=== PATIENT | female | born 1995 | race Caucasian/White ===

== ENCOUNTER → 2017-01-22 | Outpatient (CLI) | payer OTHER ==
[~2017-01-22] MED LIST: BCPILLS PO; COEN75CA PO; MAGN1TAB41 PO; NORE1TAB3 PO; [UNRECOGNIZED DRUG - OTHER] PO
--- NOTE | 2017-01-22 14:21 | DIAGNOSTIC IMAGING REPORT ---
RIGHT HAND MIN 3 VIEWS CLINICAL HISTORY: Right hand pain. Palpable lump of the third metacarpal head. COMPARISON: None. DISCUSSION: The bony mineralization appears normal. No fractures or dislocations are visualized. There are no erosive or destructive changes. No soft tissue masses are evident IMPRESSION: Unremarkable conventional radiographic evaluation of the right hand. Electronically signed by: Anirudh Wilkerson M.D. 01/22/2017 2:20 PM Dictated Date/Time: 01/22/2017 1:17 PM
== END | disposition home or self-care (01) ==
LOC: C.RDSM 12:48
PROVIDERS: ATTEND Family Medicine
DX: M79.641 Pain in right hand (principal); R22.31 Localized swelling, mass and lump, right upper limb

== ENCOUNTER 2017-02-21 00:21 | Emergency (ER) | payer OTHER ==
[~2017-02-21] VITALS: Ht 167.6 cm; Wt 49.2 kg
[2017-02-21 00:33] VITALS: TEMP 36.6; Ht 167.6 cm; Wt 49.2 kg
[2017-02-21] MEDS ORDERED: SODIUM CHLORIDE 0.9% 1000ML 1,000 ML IV ONE (00:45)
[2017-02-21] MEDS ORDERED: NORE1TAB3 PO (01:03)
[2017-02-21 01:06] VITALS: O2SAT 98
[2017-02-21 01:14] LABS: BASO % 0.2 %; BASO ABS # 0.02 K/uL (0-0.2); COMPLETE YES; EOS % 2.1 %; HEMATOCRIT 42.1 % (37-47); IG% 0.4 %; LYMPH % 36.2 %; LYMPH ABS # 2.92 K/uL (1.2-3.4); MEAN CELL VOLUME 86.6 fL (80-100); MEAN CORPUSCULAR HEMOGLOBIN 28.8 pg (25-34); MEAN CORPUSCULAR HGB CONC 33.3 g/dl (32-36); MONO % 9.4 %; NEUT % 51.7 %; PLATELET COUNT 167 K/uL (130-400); RED BLOOD COUNT 4.86 M/uL (4.2-5.4); WHITE BLOOD COUNT 8.07 K/uL (4.8-10.8)
--- NOTE | 2017-02-21 01:18 | DIAGNOSTIC IMAGING REPORT ---
SINGLE VIEW CHEST CLINICAL HISTORY: Left-sided chest pain. FINDINGS: An AP, portable, upright chest radiograph is obtained. No prior studies are available for comparison at the time of dictation. The cardiomediastinal silhouette is unremarkable. The lungs and pleural spaces are clear. No pneumothorax is seen. The bony thorax is grossly intact. IMPRESSION: No active disease in the chest. Electronically signed by: Gian Perez M.D. 02/21/2017 1:17 AM Dictated Date/Time: 02/21/2017 1:16 AM
[2017-02-21 01:30] LABS: ALT/SGPT 23 U/L (12-78); AST/SGOT 23 U/L (15-37); BLOOD UREA NITROGEN 14 mg/dl (7-18); CALCIUM 9.2 mg/dl (8.5-10.1); CARBON DIOXIDE 26 mmol/L (21-32); CHLORIDE 109 mmol/L (98-107); CREATININE 0.61 mg/dl (0.60-1.20); GLUCOSE 74 mg/dl (70-99); POTASSIUM 3.3 mmol/L (3.5-5.1); SODIUM 141 mmol/L (136-145)
[2017-02-21 01:31] LABS: POINT OF CARE TROPONIN I < 0.030 ng/ml (0-0.045)
[2017-02-21 01:41] LABS: ALB/GLOB RATIO 1.2 (0.9-2); ALKALINE PHOSPHATASE 91 U/L (45-117)
[2017-02-21 02:12] VITALS: BP 118/81; PULSE 68; O2SAT 98
--- NOTE | 2017-02-22 00:40 | EMERGENCY ROOM VISIT NOTE ---
History First contact with patient: 00:38 Chief Complaint: CARDIAC ASSESSMENT Stated Complaint: PAIN AROUND COLLAR BONE,NECK,LFT JAW,CHEST, Nursing Triage Summary: c/o collar bone pain for 1 hr History of Present Illness The patient is a 22 year old female who presents to the Emergency Room with complaints of an episode of chest pain into her left side chest wall that began about one hour prior to arrival. The patient states that she had symptoms for less than 2 or 3 minutes before they completely resolved. She was not diaphoretic or with lightheadedness or dizziness during this episode. She is not expressing palpitations. The patient became worried and now presents to the ER for evaluation. She is on control but denies other chronic medications. She does not have chronic medical disease. She rates her current discomfort a 2/10 and has not taken anything [id number] for her symptoms. She does not report aggravating or alleviating factors. Review of Systems More than 10 systems were reviewed and otherwise negative with the exception of history of present illness. Past Medical/Surgical History No chronic medical disease Family History No pertinent family history Social History Smoking Status: Never Smoker Housing Status: lives with family Current/Historical Medications Scheduled Norethin Acet & Estrad-Fe (09/11), 1 TAB PO DAILY Allergies Coded Allergies: Sulfa Antibiotics (Verified Allergy, Intermediate, RASH, 02/21/17) Physical Exam Vital Signs Date Time Temp Pulse Resp B/P (MAP) Pulse Ox O2 Delivery O2 Flow Rate FiO2 02/21/17 02:12 68 16 118/81 98 Room Air 02/21/17 01:09 73 18 116/85 97 Room Air 02/21/17 01:06 98 Room Air 02/21/17 01:06 98 Room Air 02/21/17 00:59 79 02/21/17 00:33 36.6 77 19 128/81 100 Room Air Pain Rating (0-10): 0 Physical Exam VITALS: Vitals are noted on the nurse's note and reviewed by myself. Vital signs stable. GENERAL: Well-developed, well-nourished, white female, who is in no acute distress and resting comfortably. Patient is cooperative with the examination. HEAD: Normocephalic atraumatic. EARS: External ear normal. External auditory canals clear, tympanic membranes pearly negro without erythema or effusion bilaterally. EYES: Pupils equal round and reactive to light and accommodation. Conjunctivae without injection, sclerae without icterus. Extraocular movements intact. NOSE: Patent, turbinates without inflammation or discharge. MOUTH: Mucous membranes moist. Tonsils are not enlarged. Pharynx without erythema, blood, or exudate. Uvula midline. Airway patent. NECK: Supple without nuchal rigidity. No lymphadenopathy. No thyromegaly. Cervical spine is nontender. HEART: Regular rate and rhythm without murmurs gallops or rubs. LUNGS: Clear to auscultation bilaterally without wheezes, rales or rhonchi. No retractions or accessory muscle use. ABDOMEN: Positive normal bowel sounds x 4. Soft, nontender, without masses or organomegaly. No guarding or rebound tenderness. MUSCULOSKELETAL: No muscle atrophy, erythema, or edema noted. Full range of motion without joint tenderness in all extremities. No tenderness to palpation. Normal gait. Strength 5/5 throughout. NEURO: Patient was alert and oriented to person place and time. CN II through XII grossly intact. Deep tendon reflexes 2+ throughout. No focal neurological deficits SKIN: The skin was without rashes, erythema, edema, or bruising. Capillary reflex less than 2 seconds. Medical Decision & Procedures ER Provider Diagnostic Interpretation: SINGLE VIEW CHEST CLINICAL HISTORY: Left-sided chest pain. FINDINGS: An AP, portable, upright chest radiograph is obtained. No prior studies are available for comparison at the time of dictation. The cardiomediastinal silhouette is unremarkable. The lungs and pleural spaces are clear. No pneumothorax is seen. The bony thorax is grossly intact. IMPRESSION: No active disease in the chest. Laboratory Results 02/21/17 01:00 Red Blood Count 4.86, Mean Corpuscular Volume 86.6, Mean Corpuscular Hemoglobin 28.8, Mean Corpuscular Hemoglobin Concent 33.3, Mean Platelet Volume 10.0, Neutrophils (%) (Auto) 51.7, Lymphocytes (%) (Auto) 36.2, Monocytes (%) (Auto) 9.4, Eosinophils (%) (Auto) 2.1, Basophils (%) (Auto) 0.2, Neutrophils # (Auto) 4.17, Lymphocytes # (Auto) 2.92, Monocytes # (Auto) 0.76, Eosinophils # (Auto) 0.17, Basophils # (Auto) 0.02 02/21/17 01:00 Test 02/21/17 01:00 02/21/17 01:12 White Blood Count 8.07 K/uL (4.8-10.8) Red Blood Count 4.86 M/uL (4.2-5.4) Hemoglobin 14.0 g/dL (12.0-16.0) Hematocrit 42.1 % (37-47) Mean Corpuscular Volume 86.6 fL (80-100) Mean Corpuscular Hemoglobin 28.8 pg (25-34) Mean Corpuscular Hemoglobin Concent 33.3 g/dl (32-36) Platelet Count 167 K/uL (130-400) Mean Platelet Volume 10.0 fL (7.4-10.4) Neutrophils (%) (Auto) 51.7 % Lymphocytes (%) (Auto) 36.2 % Monocytes (%) (Auto) 9.4 % Eosinophils (%) (Auto) 2.1 % Basophils (%) (Auto) 0.2 % Neutrophils # (Auto) 4.17 K/uL (1.4-6.5) Lymphocytes # (Auto) 2.92 K/uL (1.2-3.4) Monocytes # (Auto) 0.76 K/uL (0.11-0.59) Eosinophils # (Auto) 0.17 K/uL (0-0.5) Basophils # (Auto) 0.02 K/uL (0-0.2) RDW Standard Deviation 41.0 fL (36.4-46.3) RDW Coefficient of Variation 12.9 % (11.5-14.5) Immature Granulocyte % (Auto) 0.4 % Immature Granulocyte # (Auto) 0.03 K/uL (0.00-0.02) Anion Gap 6.0 mmol/L (3-11) Est Creatinine Clear Calc Drug Dose 113.3 ml/min Estimated GFR () > 150.0 Estimated GFR (Non- 129.6 BUN/Creatinine Ratio 23.0 (10-20) Calcium Level 9.2 mg/dl (8.5-10.1) Magnesium Level 2.0 mg/dl (1.8-2.4) Total Bilirubin 0.4 mg/dl (0.2-1) Aspartate Amino Transf (AST/SGOT) 23 U/L (15-37) Alanine Aminotransferase (ALT/SGPT) 23 U/L (12-78) Alkaline Phosphatase 91 U/L (45-117) Total Protein 7.7 gm/dl (6.4-8.2) Albumin 4.2 gm/dl (3.4-5.0) Globulin 3.5 gm/dl (2.5-4.0) Albumin/Globulin Ratio 1.2 (0.9-2) Lipase 224 U/L (73-393) Thyroid Stimulating Hormone (TSH) 3.380 uIu/ml (0.300-4.500) Bedside D-Dimer 253 ng/mlFEU (0-450) Bedside Troponin I < 0.030 ng/ml (0-0.045) Medications Administered Medications (Trade) Dose Ordered Sig/Hayder Route Start Time Stop Time Status Last Admin Dose Admin Sodium Chloride 1,000 ml @ 999 mls/hr Q1H1M ONCE IV 02/21/17 00:45 02/21/17 01:45 DC 02/21/17 01:18 999 MLS/HR ECG Change: Poor data quality, interpretation may be adversely affected Normal sinus rhythm with sinus arrhythmia @80bpm Normal ECG No previous ECGs available Confirmed by MARIA R KANG ([id number]) on 02/21/2017 10:32:55 AM ED Course Physical exam and history were performed. Nursing notes and EMR were reviewed. Patient appears to have an episode of left-sided chest pain that appears to have resolved prior to arrival. IV access was established and labs were obtained. EKG was performed and is as above. Chest x-ray was without acute findings. The patient's blood work is without a significant elevated white blood cell count, and others anemia, bandemia, or significant electrolyte imbalance. Lipase and transaminases are nondiagnostic. Troponin and d-dimer 1 are both negative. Overall the patient remained in stable and comfortable condition throughout her emergency department stay. I do not suspect a cardiopulmonary event as the cause of her symptoms. Her symptoms certainly could represent anxiety, or possibly a gastric etiology. The symptoms may also be musculoskeletal. Regardless ago the patient should follow with her primary care physician in the next few days for recheck. She was certainly invited back to the emergency department with any new, worsening, or concerning symptoms. She voiced understanding of this and was discharged home under the care of a male machine cleaner. The chart was completed utilizing Dragon Speech Voice Recognition Software. Grammatical errors, random word insertions, pronoun errors, and incomplete sentences are an occasional consequence of this system due to software limitations, ambient noise, and hardware issues. Any formal questions or concerns about the content, text, or information contained within the body of this dictation should be directly addressed to the provider for clarification. . Medical Decision Differential diagnosis includes, but is not limited to: Myocardial infarction, dysrhythmia, pericarditis, pneumothorax, aortic aneurysm/dissection, DVT/PE, anxiety, GERD, PUD, electrolyte imbalance, thyroid disorder, pneumonia, bronchitis, pancreatitis, and others Impression Primary Impression: Chest wall pain Departure Information Dispostion Home / Self-Care Condition GOOD Forms IMPORTANT VISIT INFORMATION Patient Instructions My [facility] Additional Instructions You were seen and evaluated today on an emergency basis only. This is not a substitute for, or an effort to provide, complete comprehensive medical care. It is not possible to recognize and treat all injuries or illnesses in a single emergency department visit. For this reason it is recommended that you followup with your primary care physician this week for ongoing care and evaluation. You are welcome to return to the emergency department anytime with new, worsening, or concerning symptoms.
== END 2017-02-21 02:14 | disposition home or self-care (01) ==
LOC: C.EDB 00:23
DX: R07.89 Other chest pain (principal); Z79.3 Long term (current) use of hormonal contraceptives

== ENCOUNTER 2017-03-18 23:35 | Emergency (ER) | payer OTHER ==
[~2017-03-18] VITALS: Ht 167.6 cm; Wt 48.9 kg
[~2017-03-18 23:35] MED LIST changes: -BCPILLS PO; -COEN75CA PO; -MAGN1TAB41 PO; -[UNRECOGNIZED DRUG - OTHER] PO
[2017-03-18 23:38] VITALS: TEMP 36.4
[2017-03-18] MEDS ORDERED: SODIUM CHLORIDE 0.9% 1000ML 1,000 ML IV STA ×2 (23:53)
[2017-03-18] MEDS ORDERED: ONDANSETRON INJ 2 MG/ML 2 ML VIAL IV STA (23:53)
[2017-03-18] MEDS ORDERED: KETOROLAC TROMETHAMINE 30 MG/ML VIAL IV STA (23:53)
[2017-03-19 00:30] VITALS: O2SAT 96; Ht 167.6 cm; Wt 48.9 kg
[2017-03-19 00:36] LABS: BASO % 0.4 %; BASO ABS # 0.03 K/uL (0-0.2); COMPLETE YES; HEMATOCRIT 39.9 % (37-47); IG% 0.3 %; LYMPH % 39.9 %; MEAN CELL VOLUME 87.5 fL (80-100); MEAN CORPUSCULAR HGB CONC 34.3 g/dl (32-36); MONO % 8.1 %; NEUT % 48.3 %; PLATELET COUNT 154 K/uL (130-400); RED BLOOD COUNT 4.56 M/uL (4.2-5.4); WHITE BLOOD COUNT 7.26 K/uL (4.8-10.8)
[2017-03-19 00:54] LABS: ALT/SGPT 20 U/L (12-78); AST/SGOT 15 U/L (15-37); BLOOD UREA NITROGEN 13 mg/dl (7-18); CALCIUM 9.4 mg/dl (8.5-10.1); CARBON DIOXIDE 26 mmol/L (21-32); CHLORIDE 112 mmol/L (98-107); CREATININE 0.68 mg/dl (0.60-1.20); GLUCOSE 93 mg/dl (70-99); POTASSIUM 3.7 mmol/L (3.5-5.1); SODIUM 142 mmol/L (136-145)
[2017-03-19 01:05] LABS: ALKALINE PHOSPHATASE 88 U/L (45-117)
[2017-03-19] MEDS ORDERED: LORAZEPAM 2 MG/ML 1 ML VIAL IV STA (01:20)
[2017-03-19] MEDS ORDERED: LORAZEPAM 2 MG/ML 1 ML VIAL ONE (01:22)
[2017-03-19 01:32] LABS: PREG INTERNAL NEGATIVE QC NEG CLEAR BACKGROUND; PREG INTERNAL POSITIVE QC POS CONTROL LINE
[2017-03-19 02:01] VITALS: BP 109/52; PULSE 71; O2SAT 95
--- NOTE | 2017-03-19 04:31 | EMERGENCY ROOM VISIT NOTE ---
History First contact with patient: 23:49 Chief Complaint: PAIN (GENERALIZED) Stated Complaint: LYMES DISEASE ATTACKS,EXTREME PAIN EVERYWHERE History of Present Illness The patient is a 22 year old female who presents to the Emergency Room with complaints of myalgias and arthralgias with fatigue and vaginal bleeding. Patient states she has Lyme's disease that is chronic per patient. She states she's never seen infectious disease for this. Patient states she actually missed on her control pills and then does not take them at the same time each day. Patient called her OB doctor as she is having her menstrual cycle for the past 10 days. They advised her to wait so next week for follow-up. They're advised her to take her control pills daily at the same time. Patient states she's taken 3 test and were negative. Patient denies chest pain, dyspnea, fever, chills, vomiting, diarrhea, neck stiffness, localized weakness. She is tolerating by mouth fluids and food. Review of Systems See HPI for pertinent positives & negatives. A total of 10 systems reviewed and were otherwise negative. Past Medical/Surgical History Lymes Social History Smoking Status: Never Smoker Marital Status: in relationship Housing Status: lives with family Current/Historical Medications Scheduled Norethin Acet & Estrad-Fe (09/11), 1 TAB PO DAILY Physical Exam Vital Signs Date Time Temp Pulse Resp B/P (MAP) Pulse Ox O2 Delivery O2 Flow Rate FiO2 03/19/17 02:01 71 17 109/52 95 Room Air 03/19/17 00:30 96 Room Air 03/19/17 00:24 67 03/18/17 23:38 36.4 67 18 145/85 96 Room Air Pain Rating (0-10): 3.0 Physical Exam VITALS: Vitals are noted on the nurse's note and reviewed by myself. Vital signs stable. GENERAL: White female, in no acute distress, nondiaphoretic, well-developed well -nourished. SKIN: The skin was without rashes, erythema, edema, or bruising. There is no tenting of the skin. Capillary reflex less than 2 seconds. HEAD: Normocephalic atraumatic. EARS: External auditory canals clear, tympanic membranes pearly negro without erythema or effusion bilaterally. EYES: Pupils equal round and reactive to light and accommodation. Conjunctivae without injection, sclerae without icterus. Extraocular movements intact. NOSE: Patent, turbinates without inflammation or discharge. MOUTH: Mucous membranes moist. Pharynx without erythema or exudate. Uvula midline. Airway patent. Tongue does not deviate. NECK: Supple without nuchal rigidity. No lymphadenopathy. No thyromegaly. Cervical spine is nontender. No JVD. HEART: Regular rate and rhythm without murmurs gallops or rubs. LUNGS: Clear to auscultation bilaterally without wheezes, rales or rhonchi. No dullness to percussion. No retractions or accessory muscle use. ABDOMEN: Positive bowel sounds x 4. Normal tympanic percussion. Soft, nontender, without masses or organomegaly. Clark sign negative. No guarding or rebound tenderness. MUSCULOSKELETAL: No muscle atrophy, erythema, or edema noted. NEURO: Patient was alert and oriented to person place and time. Normal sensation to light and sharp touch. No focal neurological deficits. Medical Decision & Procedures Laboratory Results 03/19/17 00:26 Red Blood Count 4.56, Mean Corpuscular Volume 87.5, Mean Corpuscular Hemoglobin 30.0, Mean Corpuscular Hemoglobin Concent 34.3, Mean Platelet Volume 10.0, Neutrophils (%) (Auto) 48.3, Lymphocytes (%) (Auto) 39.9, Monocytes (%) (Auto) 8.1, Eosinophils (%) (Auto) 3.0, Basophils (%) (Auto) 0.4, Neutrophils # (Auto) 3.50, Lymphocytes # (Auto) 2.90, Monocytes # (Auto) 0.59, Eosinophils # (Auto) 0.22, Basophils # (Auto) 0.03 03/19/17 00:26 Test 03/19/17 00:26 White Blood Count 7.26 K/uL (4.8-10.8) Red Blood Count 4.56 M/uL (4.2-5.4) Hemoglobin 13.7 g/dL (12.0-16.0) Hematocrit 39.9 % (37-47) Mean Corpuscular Volume 87.5 fL (80-100) Mean Corpuscular Hemoglobin 30.0 pg (25-34) Mean Corpuscular Hemoglobin Concent 34.3 g/dl (32-36) Platelet Count 154 K/uL (130-400) Mean Platelet Volume 10.0 fL (7.4-10.4) Neutrophils (%) (Auto) 48.3 % Lymphocytes (%) (Auto) 39.9 % Monocytes (%) (Auto) 8.1 % Eosinophils (%) (Auto) 3.0 % Basophils (%) (Auto) 0.4 % Neutrophils # (Auto) 3.50 K/uL (1.4-6.5) Lymphocytes # (Auto) 2.90 K/uL (1.2-3.4) Monocytes # (Auto) 0.59 K/uL (0.11-0.59) Eosinophils # (Auto) 0.22 K/uL (0-0.5) Basophils # (Auto) 0.03 K/uL (0-0.2) RDW Standard Deviation 40.4 fL (36.4-46.3) RDW Coefficient of Variation 12.6 % (11.5-14.5) Immature Granulocyte % (Auto) 0.3 % Immature Granulocyte # (Auto) 0.02 K/uL (0.00-0.02) Anion Gap 4.0 mmol/L (3-11) Est Creatinine Clear Calc Drug Dose 101.0 ml/min Estimated GFR () 144.9 Estimated GFR (Non- 125.0 BUN/Creatinine Ratio 19.0 (10-20) Calcium Level 9.4 mg/dl (8.5-10.1) Magnesium Level 2.0 mg/dl (1.8-2.4) Total Bilirubin 0.3 mg/dl (0.2-1) Direct Bilirubin < 0.1 mg/dl (0-0.2) Aspartate Amino Transf (AST/SGOT) 15 U/L (15-37) Alanine Aminotransferase (ALT/SGPT) 20 U/L (12-78) Alkaline Phosphatase 88 U/L (45-117) Total Creatine Kinase 92 U/L (26-192) Total Protein 7.5 gm/dl (6.4-8.2) Albumin 4.0 gm/dl (3.4-5.0) Thyroid Stimulating Hormone (TSH) 2.940 uIu/ml (0.300-4.500) Human Chorionic Gonadotropin, Qual NEG (NEG) Medications Administered Medications (Trade) Dose Ordered Sig/Hayder Route Start Time Stop Time Status Last Admin Dose Admin Sodium Chloride 1,000 ml @ 999 mls/hr Q1H1M STAT IV 03/18/17 23:53 03/19/17 00:53 DC 03/19/17 00:22 999 MLS/HR Sodium Chloride 1,000 ml @ 125 mls/hr Q8H STAT IV 03/18/17 23:53 03/19/17 04:00 DC 03/19/17 00:22 125 MLS/HR Ketorolac Tromethamine (Toradol Inj) 30 mg NOW STAT IV 03/18/17 23:53 03/19/17 00:01 DC 03/19/17 00:22 30 MG Ondansetron HCl (Zofran Inj) 4 mg NOW STAT IV 03/18/17 23:53 03/19/17 00:01 DC 03/19/17 00:22 4 MG Lorazepam (Ativan Inj) 0.5 mg NOW STAT IV 03/19/17 01:20 03/19/17 01:22 DC 03/19/17 01:24 0.5 MG ED Course Prior records/ancillary studies reviewed and summarized above. Nursing notes reviewed. Additional history obtained from friend. The patient's history was concerning for weakness with possible chronic Lyme's. Differential diagnosis: Etiologies such as chronic Lyme's disease, metabolic, infection, hypo/ hyperglycemia, electrolyte abnormalities, cardiac sources, intracerebral event, toxicologic, neurologic, as well as others were entertained. Physical examination: As above. ER treatment provided: IV Lock Toradol, Ativan On reassessment the patient felt better. Diagnostics interpretation by me: ECG: Normal sinus, normal intervals, no acute ST-T wave changes. Impression normal sinus rhythm interpreted by myself The labs revealed negative hCG. Stable H&H. Euthyroid Exam and history seem consistent with myalgias and arthralgias that could be related to Lyme's disease or other etiologies. Patient is advised to see her family care for referral to infectious disease if she is concerned about chronic lymes. She was advised to eat regular meals and to get 8 hours of sleep tonight. She is advised to take her control pills daily at the same exact time and if her symptoms persist to follow-up with her OB doctor here in the ER sooner for heavy bleeding, fatigue, weakness, worsening signs or symptoms or as needed.By the evaluation outlined above emergent etiologies such as infection, electrolyte abnormalities, cardiac sources, intracerebral event, toxologic, neurologic, abnormalities blood glucose, metabolic, as well as others were deemed relatively unlikely. The pt informed about the findings as listed above. All questions were answered and pleased with the treatment. Return instructions were outlined and the patient was discharged in stable condition. Referral: The patient was referred back to [facility] and primary care physician for follow- up in 2 to 3 days for a recheck of the current condition. Medical Decision As above Medication Reconcilliation Current Medication List: was personally reviewed by me Blood Pressure Screening Patient's blood pressure: Normal blood pressure Impression Primary Impression: Myalgia and myositis Departure Information Dispostion Home / Self-Care Condition GOOD Forms WORK / SCHOOL INSTRUCTIONS, HOME CARE DOCUMENTATION FORM, IMPORTANT VISIT INFORMATION Patient Instructions My [facility] [employer] Additional Instructions DO NOT drive, drink alcohol, operate machinery, or perform dangerous activities today. You were given medications in the ER that can affect your ability to safely function or operate a vehicle. Ibuprofen(Motrin, Advil) may be used for fever or pain. Use 400mg every six hours as needed. Take with food. Avoid using more than 1600mg in a 24 hour period. Do not use 1600mg per day for more than three consecutive days without physician direction. Prolonged inappropriate use can lead to stomach upset or ulcers. (AND/OR) Acetaminophen(Tylenol) may be used for fever or pain. Use 2000mg every six hours as needed. Avoid using more than 500mg in a 24 hour period. Rest and drink plenty of fluids as tolerated. Continue current medications. Avoid strenuous activities and anything that worsens your pain. Resume normal activities once your symptoms resolve. Return to the ER immediately for worsening or persistent pain, abdominal pain, vomiting, fevers, chest pains, difficulty breathing, worsening of your condition , or as needed. Follow up with your primary physician in 2-3 days for a recheck of your current condition. Recommend infectious disease referral if concerns about your Lyme's disease. Family care doctor can refer you. Follow up with your OB doctor for your breakthrough menstrual bleeding.
== END 2017-03-19 02:32 | disposition home or self-care (01) ==
LOC: C.EDB 23:36 → C.EDA 03-19 02:32
DX: M79.1 Myalgia (principal); A69.20 Lyme disease, unspecified; N92.6 Irregular menstruation, unspecified; Z79.3 Long term (current) use of hormonal contraceptives

== ENCOUNTER → 2017-05-06 | Outpatient (CLI) | payer OTHER | END | disposition home or self-care (01) | LOC: C.PAPS 11:47 | PROVIDERS: ATTEND Physician Assistant | DX: Z12.4 Encounter for screening for malignant neoplasm of cervix (principal); Z11.51 Encounter for screening for human papillomavirus (HPV) ==

== ENCOUNTER → 2017-05-06 | Outpatient (CLI) | payer OTHER ==
[2017-05-10 08:43] LABS: CHLAMYDIA TRACH RNA*** NOT DETECTED (NOT DETECTED); GC (NEIS GONORRHOEAE)RNA** NOT DETECTED (NOT DETECTED)
== END | disposition home or self-care (01) ==
LOC: C.LABSPEC 13:34
PROVIDERS: ATTEND Physician Assistant
DX: Z12.4 Encounter for screening for malignant neoplasm of cervix (principal)

== ENCOUNTER → 2017-06-04 | Outpatient (CLI) | payer OTHER | END | disposition home or self-care (01) | LOC: C.RDSM 10:48 | PROVIDERS: ATTEND Physical Medicine & Rehabilitation Sports Medicine | DX: M79.644 Pain in right finger(s) (principal) ==

== ENCOUNTER → 2017-08-12 | Day surgery (SDC) | payer OTHER ==
[2017-07-12 07:22] VITALS: Ht 167.6 cm; Wt 46.4 kg
[~2017-08-12] VITALS: Ht 167.6 cm; Wt 46.4 kg
[~2017-08-12] MED LIST changes: +ATROPINE SULFATE 0.1 MG/ML 5ML SYR IV PRN; +BCPILLS PO; +BUPIVACAINE/EPINEPHRINE 0.5% MPF 1:200,000 30 ML VIAL ONE; +CEFAZOLIN 1000MG IV PUSH 5 ML IV SCH; +COEN75CA PO; +DEXAMETHASONE SOD INJ 4 MG/ML VIAL ONE; +EpHEDrine SULFATE INJ 50 MG/ML AMP IV PRN; +FENTANYL CITRATE INJ 50 MCG/1 ML 2 ML VIAL IV PRN; +FENTANYL CITRATE INJ 50 MCG/1 ML 2 ML VIAL ONE; +HYDROCODONE/ACETAMIN 5/325MG TAB PO PRN; +LACTATED RINGER'S 1000ML 1,000 ML IV SCH; +LIDOCAINE HCL 2% 2 ML VIAL (20MG/ML) ONE; +LIDOCAINE/EPINEPHRINE 1% INJ 50 ML VIAL ONE; +MAGN1TAB41 PO; +MIDAZOLAM HCL 1 MG/ML 2ML VIAL ONE; -NORE1TAB3 PO; +ONDANSETRON INJ 2 MG/ML 2 ML VIAL IV PRN; +ONDANSETRON INJ 2 MG/ML 2 ML VIAL ONE; +PROPOFOL IV EMULSION 10 MG/ML 20 ML VIAL IV ONE; +SODIUM CHLORIDE 0.9% 1000ML 1,000 ML IV SCH; +TRAM-10 PO; +TRAMADOL HCL 50 MG TAB PO PRN; +[UNRECOGNIZED DRUG - OTHER] PO
--- NOTE | 2017-08-12 13:52 | History & Physical Bridge Note ---
H&P Re-Evaluation Bridge Note: I have examined the patient, reviewed the History & Physical and in the interval since the performance of the History & Physical I have noted the following changes of clinical significance: No changes noted
--- NOTE | 2017-08-12 15:51 | Discharge Instructions-[facility] ---
Discharge Instructions Date of Service Aug 12, 2017. Visit Reason for Visit: Right Long Finger Cyst Discharge Discharge Diagnosis / Problem: right long finger cyst Discharge Goals Goal(s): Decrease discomfort, Improve function, Increase independence Activity Recommendations Activity Limitations: per Instructions/Follow-up section Weightbearing Status: Left weightbearing (as tolerated) Anesthesia . Post Anesthesia Instructions: If you have had General Anesthesia or IV Sedation: * Do not drive today. * Resume driving when surgeon permits. * Do not make important decisions or sign legal documents today. * Call surgeon for: 1. Temperature elevations greater than 101 degrees F. 2. Uncontrollable pain. 3. Excessive bleeding. 4. Persistent nausea and vomiting. 5. Medication intolerance (nausea, vomiting or rash). * For nausea and vomiting use only clear liquids such as: tea, soda, bouillon until nausea subsides, then gradually increase diet as tolerated. * If you have any concerns or questions, call your surgeon's office. If physician is unavailable and it is an emergency, call 911 or go to the nearest emergency room. . Instructions / Follow-Up Instructions / Follow-Up The following are instructions to follow after minor hand surgery. ACTIVITY RECOMMENDATIONS: * Minimize activity until your first visit after surgery. * No excessive walking, jogging, sports or laboring. * Return to activity is individualized. Most patients are able to return to everyday activities within 2 weeks. * Return to sports or intensive labor usually occurs at 1-2 months. * DRIVING: Driving may be resumed when you feel you have adequate pain control and use of the hand. * BATHING: You may shower or sponge-bathe immediately after surgery. The dressing will need to be covered with a plastic bag or plastic wrap until the dressing is changed on the fourth or fifth day after surgery. Once the dressing has been changed on the fourth or fifth day after surgery, you may shower and get the incision wet. * Wash with regular soap and water. * Do not bathe (submerge the incision), soak, swim or use a hot tub until the incision is completely healed over with normal skin and the doctor has given the OK to proceed. * There is no need to apply any ointments, powders or salves to your incision. * Do not apply alcohol or hydrogen peroxide directly to the incision. Diluted peroxide (50:50 mixture with sterile saline) may be used to clean dried blood from around the incision area. WORK/SCHOOL: * You may return to sedentary work or school when you are feeling comfortable. This is usually 3-7 days after surgery. * Expect increased discomfort with increased activity. Continue to elevate and ice the hand as much as possible. DIET: * Resume previous diet. MEDICATIONS: * You will have a prescription for pain medication and an anti-inflammatory medication after surgery. Use the pain pills for severe pain and the anti-inflammatory for less severe pain. * Once the pain pills have run out, try to use the anti-inflammatory. If this is not effective then contact the office for assistance. * The pain medication may cause nausea, constipation and sleepiness. You should see how they affect you before driving or similar activity. * The anti-inflammatory may cause stomach upset and bleeding. If this occurs, let your doctor know immediately . * Some patients may need blood clot prevention. This can be done with either a pill or a simple shot. Your doctor will advise you on when to begin these medications and how to take them. * Do not take aspirin or other anti-inflammatory products (i.e. Advil or Aleve ) if taking blood thinner medication. * Take a stool softener like Colace or a stimulant like Senokot to prevent constipation. SPECIAL CARE INSTRUCTIONS: ICE: * Do not apply ice directly to the skin. * Use a thin dressing or stockinet between the skin and ice bag. The dressing in place after surgery will suffice. * Apply ice for 20-30 minutes and repeat every 2-4 hours. This is especially important for the first 3-7 days after surgery. * Once the pain improves, use ice as needed. ELEVATION: * Keep your hand elevated at or above the level of your heart as much as possible. * Expect some increased discomfort and swelling if you allow your hand to hang down for any length of time. DRESSING: * Your dressing will be changed 4-5 days after surgery by the physical therapist or physician's assistant men's soccer coach. Leave your dressing intact until this time. You may remove your dressings on Wednesday, reapply dressings as needed. * You may then change your dressing daily with clean dry gauze or Band-aids and a soft wrap or stockinet. * Always wash your hands prior to touching the incision area. * Once the stitches are removed, you may leave the wound open to air or cover with a thin bandage. * There is no need to apply any ointments, powders or salves to your incision. * Expect some bloody drainage for the first few days after surgery. * Leave the tape strips in place (if present) for 5-7 days. * The initial dressing after surgery may become soaked with blood or fluid which is normal. You may reinforce your dressing with clean, dry gauze as needed. BRACE: * Bracing is generally not needed after routine hand surgery. THERAPY: * Physical therapy may be prescribed after your surgery. * For carpal tunnel and trigger digit surgery you may begin moving your fingers and wrist immediately after surgery as tolerated. * Be careful to not overuse. * Once the sutures are removed, further range of motion exercises can be performed. * Hand incisions may be very sensitive for a few months after surgery so avoid excessive pressure on the incision. If necessary, use a padded weightlifters' glove. * You may massage the incision with skin cream to make it less sensitive and reduce scarring. * Hand strength usually returns with normal use. * If needed, squeezing a soft sponge or Play-dough may help. * Your doctor will recommend physical therapy if necessary. PROBLEMS/QUESTIONS: * If you have any problems such as severe pain, numbness, tingling or high fevers or if you have any questions, please contact the office at [phone]. * It is not uncommon to have some numbness and tingling after the surgery especially if you have had a nerve block done. This should gradually improve over the first 1- 2 days. If this persists longer or worsens then contact the office. FOLLOW UP VISIT: * If not already scheduled, please call the office at to schedule follow-up appointments for approximately 10 days, 6 weeks and 3 months after surgery. * You have a follow up scheduled with Dr. Gilman on 08/27/16 at 9:00 a.m. Diet Recommendations Home Diet: no limitations, resume previous diet Pending Studies Studies pending at discharge: no Medical Emergencies . Who to Call and When: Medical Emergencies: If at any time you feel your situation is an emergency, please call 911 immediately. . Non-Emergent Contact Non-Emergency issues call your: Surgeon Call Non-Emergent contact if: temperature is above 101, your pain is not controlled, your pain is worsening, wound has increased drainage, wound has increased redness, wound has increased pain, you have any medication questions . . "Provider Documentation" section prepared by Tiffanie Floyd. . [place] Drug Monitoring Program Search Results: patient reviewed within database, no issues identified
--- NOTE | 2017-08-12 15:56 | [facility] Post Operative Brief Note ---
Immediate Operative Summary Operative Date Aug 12, 2017. Pre-Operative Diagnosis Right Long Finger Cyst Post-Operative Diagnosis Same Procedure(s) Performed Right Long Finger Cyst Excision Surgeon Dr. Gilman Framing Mill Operator Helper Surgeon(s) Dr. Chirinos Estimated Blood Loss 2ml Findings 3 mm cyst Specimens A. Right Long Finger Cyst Anesthesia local with iv sedation Complication(s) None Disposition Recovery Room / PACU
[2017-08-12 16:07] VITALS: TEMP 36.7
--- NOTE | 2017-08-12 16:28 | Anesthesia Progress Nt - [facility] ---
Anesthesia Post Op Note Date & Time Aug 12, 2017 at 16:28 Vital Signs Pain Intensity: 0 Vital Signs Past 12 Hours Date Time Temp Pulse Resp B/P (MAP) Pulse Ox O2 Delivery O2 Flow Rate FiO2 08/12/17 16:07 36.7 100 16 109/68 (82) 98 Room Air 08/12/17 13:03 36.7 90 16 119/81 (94) 100 Room Air Notes Mental Status: alert / awake / arousable, participated in evaluation Pt Amnestic to Procedure: Yes Nausea / Vomiting: adequately controlled Pain: adequately controlled Airway Patency, RR, SpO2: stable & adequate BP & HR: stable & adequate Hydration State: stable & adequate Anesthetic Complications: no major complications apparent
[2017-08-12 16:34] VITALS: BP 102/69; PULSE 90; O2SAT 97
--- NOTE | 2017-08-12 16:36 | OPERATIVE REPORT ---
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 POSTOPERATIVE DIAGNOSIS: Same. 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 SURGEON: Dr. Gilman. IT AUDITOR: Darin Chirinos, fellow. No PA was available. ANESTHESIA: Local with IV sedation. INDICATIONS OF PROCEDURE: The patient is a 22-year-old female with a symptomatic lesion on the volar aspect of her metacarpophalangeal joint flexion crease on the right long finger. She wishes to have this excised. 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 She does not have any triggering. On examination, there is full range of motion with normal neurovascular function. The patient noted perhaps a small satellite lesion immediately adjacent to the ulnar side. PROCEDURE IN DETAIL: Informed consent was obtained. The patient was identified as Trinidad Bradley. She identified the operative site as the right hand long finger, I marked with my initials. A preoperative surgical timeout was performed and a preop dose of IV antibiotics was given. She was taken to the operating room, positioned supine on the hospital stretcher with the right arm on a hand table. A tourniquet was applied to the right upper arm. The limb was prepped and draped in the usual sterile fashion. The exam under anesthesia showed a piece of lesion at the level of the MP flexion crease, perhaps with a small bump immediately adjacent to it ulnarly. There was no triggering and there was full range of motion with normal neurovascular function. DVT prophylaxis was not indicated. Prior to start of the procedure, 3 mL of 1% lidocaine with epinephrine and 0.5% Marcaine with epinephrine were injected for a digital block at the level of the distal palmar crease. The limb was prepped and draped in the usual sterile fashion, the limb was exsanguinated with the Esmarch, tourniquet inflated to 225 mmHg. After confirming adequate analgesia, a V-shaped incision based ulnarly was then made with the apex at the MP webspace. Blunt dissection was performed down in the midline and full thickness flaps were elevated. The radial neurovascular structures were identified and retracted safely out of the way. Dissection was performed in the midline until the cyst was identified. It had perhaps a small bump associated just to the ulnar side of it. The lesion measured about 3-4 mm in diameter, it was affixed to the flexor sheath and arising from it. I then very carefully excised a 4 mm2 flexor sheath, taking care to protect the underlying tendons in a full thickness fashion, both the main lesion and the small satellite lesion immediately adjacent to were excised and sent for specimen. The tourniquet was then let down after 10 minutes of inflation. Irrigation was performed. Bleeding was controlled with electrocautery and pressure. There was no triggering nor bolstering of the tendon. This likely involved the A2 kathie or its distal extent. The skin was then closed in an interrupted fashion with 4-0 nylon, a soft sterile dressing was applied and she was awakened from anesthesia without difficulty and taken to the recovery room in stable condition. Specimens were as mentioned above. Counts were correct at the end of case. Blood loss was minimal. At the conclusion of the operation, I spoke to patient's and informed him of my findings and gave detailed postoperative instructions. She can do early active movement of her hand. The resected lesion was sent for specimen. It was whitish opaque with findings consistent of a small cyst. I attest to the content of the Intraoperative Record and any orders documented therein. Any exception s are noted below.
== END | disposition home or self-care (01) ==
LOC: X.SURG 12:34
PROVIDERS: ATTEND Physical Medicine & Rehabilitation Sports Medicine
DX: M67.441 Ganglion, right hand (principal); Z79.3 Long term (current) use of hormonal contraceptives; Z79.899 Other long term (current) drug therapy

== ENCOUNTER → 2017-10-07 | Outpatient (CLI) | payer OTHER ==
[~2017-10-07] MED LIST changes: -ATROPINE SULFATE 0.1 MG/ML 5ML SYR IV PRN; -BUPIVACAINE/EPINEPHRINE 0.5% MPF 1:200,000 30 ML VIAL ONE; -CEFAZOLIN 1000MG IV PUSH 5 ML IV SCH; -DEXAMETHASONE SOD INJ 4 MG/ML VIAL ONE; -EpHEDrine SULFATE INJ 50 MG/ML AMP IV PRN; -FENTANYL CITRATE INJ 50 MCG/1 ML 2 ML VIAL IV PRN; -FENTANYL CITRATE INJ 50 MCG/1 ML 2 ML VIAL ONE; -HYDROCODONE/ACETAMIN 5/325MG TAB PO PRN; -LACTATED RINGER'S 1000ML 1,000 ML IV SCH; -LIDOCAINE HCL 2% 2 ML VIAL (20MG/ML) ONE; -LIDOCAINE/EPINEPHRINE 1% INJ 50 ML VIAL ONE; -MIDAZOLAM HCL 1 MG/ML 2ML VIAL ONE; -ONDANSETRON INJ 2 MG/ML 2 ML VIAL IV PRN; -ONDANSETRON INJ 2 MG/ML 2 ML VIAL ONE; -PROPOFOL IV EMULSION 10 MG/ML 20 ML VIAL IV ONE; -SODIUM CHLORIDE 0.9% 1000ML 1,000 ML IV SCH; -TRAMADOL HCL 50 MG TAB PO PRN
== END | disposition home or self-care (01) ==
LOC: C.PAPS 14:34
PROVIDERS: ATTEND Obstetrics & Gynecology
DX: R59.1 Generalized enlarged lymph nodes (principal); R10.2 Pelvic and perineal pain

== ENCOUNTER → 2017-10-07 | Outpatient (CLI) | payer OTHER ==
[2017-10-07 12:44] LABS: BASO % 0.2 %; BASO ABS # 0.02 K/uL (0-0.2); EOS % 1.2 %; HEMATOCRIT 39.5 % (37-47); HEMOGLOBIN 13.7 g/dL (12.0-16.0); IG# 0.01 K/uL (0.00-0.02); LYMPH % 28.5 %; LYMPH ABS # 2.31 K/uL (1.2-3.4); MEAN CELL VOLUME 86.6 fL (80-100); MEAN CORPUSCULAR HGB CONC 34.7 g/dl (32-36); MEAN PLATELET VOLUME 10.2 fL (7.4-10.4); MONO % 8.1 %; MONO ABS # 0.66 K/uL (0.11-0.59); NEUT % 61.9 %; PLATELET COUNT 162 K/uL (130-400); RED CELL DISTRIBUTION WIDTH CV 12.7 % (11.5-14.5); RED CELL DISTRIBUTION WIDTH SD 39.7 fL (36.4-46.3)
== END | disposition home or self-care (01) ==
LOC: C.LAB1850 10:20
PROVIDERS: ATTEND Obstetrics & Gynecology
DX: N94.10 Unspecified dyspareunia (principal); R59.1 Generalized enlarged lymph nodes; R10.2 Pelvic and perineal pain